=== PATIENT | female | born 1940 | race Caucasian/White ===

== ENCOUNTER 2018-08-24 18:48 | Inpatient (IN) | payer OTHER ==
[~2018-08-24] VITALS: Ht 170.2 cm; Wt 71.7 kg
[2018-08-24 19:03] VITALS: Ht 170.2 cm; Wt 71.7 kg
[2018-08-24 19:40] LABS: BASOPHIL % 0.7 % (0-2); PLATELET COUNT 209 x10^3mcL (130-400); RED CELL DISTRIBUTION WIDTH 12.7 % (11.5-14.5)
[2018-08-24 19:51] LABS: microscopic required? NO
[2018-08-24 20:01] LABS: UA SPECIFIC GRAVITY <=1.005 (1.005-1.035); urine erythrocyte NEGATIVE (NEGATIVE)
[2018-08-24 20:02] LABS: CARBON DIOXIDE 27.5 mmol/L (21-32); CHLORIDE SERUM 105 mmol/L (98-107); CREATININE SERUM 0.7 mg/dL (0.6-1.0); GLUCOSE SERUM 108 mg/dL (74-106); POTASSIUM SERUM 3.6 mmol/L (3.5-5.1); SODIUM SERUM 142 mmol/L (136-145)
[2018-08-24 20:10] LABS: AMPHETAMINE QUAL UR NONE DETECTED (See below)
[2018-08-24 20:17] LABS: ALKALINE PHOSPHATASE 119 U/L (46-116); ALT/SGPT 22 U/L (14-59); AMYLASE 90 U/L (25-115); AST/SGOT 19 U/L (15-37); BILIRUBIN TOTAL 0.2 mg/dL (0.20-1.00); LIPASE 104 IU/L (73-393); MAGNESIUM 2.5 mg/dL (1.8-2.4); T4(THYROXINE) 9.5 ug/dL (4.7-13.3)
[2018-08-24 20:19] LABS: CHOLESTEROL 300 mg/dL (<200); HDL CHOLESTEROL 80 mg/dL (40-60); TOTAL PROTEIN, SERUM 8.4 g/dL (6.4-8.2)
[2018-08-24 23:21] VITALS: BP 117/64
[2018-08-25 06:20] VITALS: BP 122/74
[2018-08-25 09:54] VITALS: BP 135/65
[2018-08-25 12:55] VITALS: BP 135/65
== END 2018-08-25 13:25 | disposition home or self-care (01) | DRG 896 ==
LOC: ED 18:48 → DU 22:09
PROVIDERS: Emergency Medicine; ADMIT Internal Medicine
DX: F10.129 Alcohol abuse with intoxication, unspecified (principal); G93.41 Metabolic encephalopathy; Y90.8 Blood alcohol level of 240 mg/100 ml or more; Z68.28 Body mass index [BMI] 28.0-28.9, adult
CPT/HCPCS: 82962; G0480; J2060; J3411; J3475; J3490; Q0092